=== PATIENT | female | born 1995 | race Caucasian/White ===

== ENCOUNTER 2016-08-30 22:32 | Emergency (ER) | payer OTHER ==
[~2016-08-30] VITALS: Ht 160 cm; Wt 43.0 kg
[2016-08-30 22:32] VITALS: BP 102/76; PULSE 82; RESP 16; TEMP 98.6; O2SAT 98
[2016-08-30] MEDS ORDERED: CEPH500C PO (22:41)
--- NOTE | 2016-08-30 23:08 | PD ---
HPI Chief Complaint: Complaint Time Seen by Provider: 23:03 Travel History International Travel<30 days: No Contact w/Intl Traveler<30days: No Traveled to known affect area: No History of Present Illness HPI 21-year-old 2 para 1 AB 0 with a 9 week presents to emergency department with complaints of increased urinary frequency, dysuria and urgency. This is a female who is been seen 4 times over the last week and a half for urinary tract symptoms. She was initially seen twice by [facility] a week ago this past Thursday. She was told that she had a bacterial vaginosis. She had been given MetroGel which she is use for one day. She was told to discontinue this when she was seen at [facility]. She then was seen at [facility] and was told she had a urinary tract infection and was placed on Macrobid and Pyridium. The patient seen this past Thursday by her OB doctor. She was given a shot of antibiotics and started on Keflex. She states that her symptoms seemed to improve up until the last 1-2 days when she's had return of her symptoms. She also states that she is taking a cream for her vagina. She denies any fever chills. No nausea vomiting. No abdominal pain. No vaginal pain. No leakage of fluid or vaginal bleeding. She has had 3 pelvic exams over the past week. She also was told that she had a cystocele. PFSH Past Medical History Medical History: Denies Significant Hx Diminished Hearing: No Tetanus Vaccination: Unknown ?: LMP: 07/03/16 Past Surgical History Appendectomy: Yes (2009) Social History Alcohol Use: No Tobacco Use: No Substance Use: No Allergies-Medications (Allergen,Severity, Reaction): Coded Allergies: No Known Allergies (Unverified , 08/30/16) Reported Meds & Prescriptions Reported Meds & Active Scripts Active Reported Cephalexin 500 Mg Cap 500 Mg PO Q12H Review of Systems Except as stated in HPI: all other systems reviewed are Neg Genitourinary: Positive: Urgency, Frequency, Dysuria, No: Hematuria, Incontinence, Pelvic Pain, Flank Pain, Discharge, Vaginal Bleeding Physical Exam Narrative GENERAL: Well-developed, well-nourished in no acute distress. Nontoxic appearing. HEAD: Normocephalic, atraumatic. EYES: Pupils equal round and reactive. Extraocular motions intact. No scleral icterus. No injection or drainage. ENT: TMs clear without erythema. The external auditory canals clear. Nose: clear . Posterior pharynx is pink and moist. No tonsillar edema or exudate. Uvula midline. Airway patent. NECK: Trachea midline.Supple, nontender, moves head freely. No central bony tenderness or spasm. CARDIOVASCULAR: Regular rate and rhythm without murmurs, gallops, or rubs. RESPIRATORY: Clear to auscultation. Breath sounds equal bilaterally. No wheezes , rales, or rhonchi. GASTROINTESTINAL: Abdomen soft, non-tender, nondistended. No hepato-splenomegaly , or palpable masses. No guarding. EXTREMITIES: No clubbing, cyanosis, or edema. No joint tenderness, effusion, or edema noted. BACK: Nontender without deformity or crepitance. No flank tenderness. Data Data Last Documented VS Vital Signs Date Time Temp Pulse Resp B/P Pulse Ox O2 Delivery O2 Flow Rate FiO2 08/30/16 22:32 98.6 82 16 102/76 98 Room Air Orders Urinalysis - C+S If Indicated (08/30/16 22:58) Labs Laboratory Tests Test 08/30/16 23:05 Urine Color YELLOW Urine Turbidity CLEAR Urine pH 6.5 Urine Specific [place] 1.019 Urine Protein NEG mg/dL Urine Glucose (UA) NEG mg/dL Urine Ketones NEG mg/dL Urine Occult Blood NEG Urine Nitrite NEG Urine Bilirubin NEG Urine Urobilinogen LESS THAN 2.0 MG/DL Urine Leukocyte Esterase NEG Urine RBC LESS THAN 1 /hpf Urine WBC 1 /hpf Urine Squamous Epithelial <1 /hpf Cells Urine Amorphous Sediment RARE Urine Mucus FEW /lpf Microscopic Urinalysis Comment CATH-CULT NOT IND MDM Medical Decision Making Medical Screen Exam Complete: Yes Emergency Medical Condition: Yes Medical Record Reviewed: Yes Interpretation(s) Laboratory Tests Test 08/30/16 23:05 Urine Color YELLOW Urine Turbidity CLEAR Urine pH 6.5 Urine Specific [place] 1.019 Urine Protein NEG mg/dL Urine Glucose (UA) NEG mg/dL Urine Ketones NEG mg/dL Urine Occult Blood NEG Urine Nitrite NEG Urine Bilirubin NEG Urine Urobilinogen LESS THAN 2.0 MG/DL Urine Leukocyte Esterase NEG Urine RBC LESS THAN 1 /hpf Urine WBC 1 /hpf Urine Squamous Epithelial <1 /hpf Cells Urine Amorphous Sediment RARE Urine Mucus FEW /lpf Microscopic Urinalysis Comment CATH-CULT NOT IND Differential Diagnosis Differential diagnosis: Pyelonephritis, UTI, vaginitis, cystocele, urethritis Narrative Course Patient urinalysis unremarkable. Her exam is unremarkable. The patient has been counseled to continue her antibiotics and may take her Pyridium as needed. She should follow-up with her OB doctor on Thursday. This is dysuria Diagnosis Primary Impression: Dysuria during in first trimester Patient Instructions: General Instructions Additional Instructions: Rest. Increase fluids. Take your Pyridium. Finish your antibiotic. Follow-up with your OB doctor on Thursday. Med/Other Pt SpecificInfo: No Change to Meds Disposition: 01 DISCHARGE HOME Condition: Stable Sukh Hayes Aug 30, 2016 23:08
[2016-08-30 23:57] LABS: BLOOD, URINE NEG (NEG); GLUCOSE,URINE NEG (NEG); KETONE, URINE NEG (NEG); MUCUS URINE FEW /lpf (OCC); NITRITE,URINE NEG (NEG); PH, URINE 6.5 (5.0-8.5); SQUAMOUS EPITHELIAL CELL URINE <1 /hpf (0-5); URINE COLOR YELLOW (YELLW/STRAW)
[2016-08-31] LABS: COMMENT (UR) CATH-CULT NOT IND; CULTURE IF INDICATED CATH CULTURE NOT IND
== END 2016-08-31 00:44 | disposition home or self-care (01) ==
LOC: NEPK 22:32
DX: O26.891 Other specified pregnancy related conditions, first trimester (principal); R30.0 Dysuria
CPT/HCPCS: 81001; 99283